=== PATIENT | female | born 1965 | race Caucasian/White ===

== ENCOUNTER 2019-10-07 06:29 | Emergency (ER) | payer OTHER ==
[~2019-10-07] VITALS: Ht 160 cm; Wt 98.4 kg
[2019-10-07] MEDS ORDERED: ATACAND32 MG (06:46)
[2019-10-07] MEDS ORDERED: BYSTOLIC10 MG (06:46)
[2019-10-07] MEDS ORDERED: AMLODIPINE-OLM1 EAC3 (06:47)
== END 2019-10-07 10:17 | disposition home or self-care (01) ==
LOC: ER 06:29
DX: U07.1 COVID-19 (principal); R53.81 Other malaise; R50.9 Fever, unspecified

== ENCOUNTER 2019-10-10 19:42 | Inpatient (IN) | payer OTHER ==
[~2019-10-10] VITALS: Ht 160 cm; Wt 97.5 kg
[~2019-10-10 19:42] MED LIST: AMLODIPINE-OLM1 EAC3; ATACAND32 MG; BYSTOLIC10 MG
[2019-10-10] MEDS ORDERED: HYDROCHLOROTHIA25 MG (19:58)
--- NOTE | 2019-10-10 19:59 | NUR ---
SE RECIBE PTE ALERTA Y ORIENTADA X3,REFIERE TENR DIARREAS ,DOLOR EN EL PECHO LEVE ,DOLOR EN EL BRAZO STEPHANIE LLAMO A GIRARD MEDICO DE CABECERA AILYN LA REFIERE A LA AUSTIN DE ER.
--- NOTE | 2019-10-10 21:29 | NUR ---
PTE ALERTA Y ORIENTADA X3, SE LE LAKESHIA MUESTRAS DE LAB. JAN ORDEN MEDICA BAJO MEDIDAS ASEPTICAS. SE CANALIZA AREA SNOW DE EDEMA Y DE ENROJECIMIENTO. SE LE ADMINISTRAN MEDICAMENTOS JAN ORDEN MEDICA Y SE EDUCA SOBRE TRATAMIENTO MEDICO. PTE MANEJADA POR GREGG.
--- NOTE | 2019-10-10 21:58 | NUR ---
SE LE ENTREGA ENVASE PARA COLECTAR MUESTRA DE FECALES. PACIENTE ES ORIENTADO Y PACIENTE REFIERE ENTENDER. PACIENTE PENDIENTE A ENTREGAR MUETRA DE ESCRETA.
--- NOTE | 2019-10-11 01:48 | NUR ---
SE REQUIZAN MEDICAMENTOS CON PHLEBOTOMY SERVICES REPRESENTATIVE DE TURNO
--- NOTE | 2019-10-11 08:20 | NUR ---
SE RECIBE PTE ALERTA Y ORIENTADO POR 3 EN MERLENE CON BARANDAS ELEVADA Y TIMBRE ACCESIBLE NO PRESENTA DOLOR AL MOMENTO SE OBSERVA VENOPUNCION PATETEN Y SNOW DE EDEMA, PTE EN ESEPRA DEL DR BRANDY MULLINS, SE CONECTA A OXYMETRIA DE PULOS Y SE NOTIFICA TERAPIA RESPIRATORIO PTE SE MANTIENE EN OBSERVACION Y BAJO TRATAMIENTO.
== END 2019-10-21 15:41 | disposition home or self-care (01) | DRG 177 ==
LOC: ER 19:42 → MEDJ 10-11 10:46
PROVIDERS: ADMIT Internal Medicine; ATTEND Internal Medicine
PROC: BB24ZZZ Computerized Tomography (CT Scan) of Bilateral Lungs (ICD-10-PCS; principal; 2019-10-11)
PROC: 4A033R1 Measurement of Arterial Saturation, Peripheral, Percutaneous Approach (ICD-10-PCS; 2019-10-11)
PROC: 8E0ZXY6 Isolation (ICD-10-PCS; 2019-10-11)
PROC: 3E0F7GC Introduction of Other Therapeutic Substance into Respiratory Tract, Via Natural or Artificial Opening (ICD-10-PCS; 2019-10-11)
PROC: 4A12X4Z Monitoring of Cardiac Electrical Activity, External Approach (ICD-10-PCS; 2019-10-12)
DX: U07.1 COVID-19 (principal); J12.89 Other viral pneumonia; R09.02 Hypoxemia; I10 Essential (primary) hypertension; R50.9 Fever, unspecified

== ENCOUNTER 2019-11-27 16:08 | Emergency (ER) | payer OTHER ==
[~2019-11-27] VITALS: Ht 160 cm; Wt 90.7 kg
[~2019-11-27 16:08] MED LIST changes: +HYDROCHLOROTHIA25 MG
== END 2019-11-27 19:24 | disposition home or self-care (01) ==
LOC: ER 16:08
DX: R06.02 Shortness of breath (principal); U07.1 COVID-19

== ENCOUNTER 2019-12-11 18:54 | Emergency (ER) | payer OTHER ==
[~2019-12-11] VITALS: Ht 160 cm; Wt 90.7 kg
== END 2019-12-11 22:40 | disposition home or self-care (01) ==
LOC: ER 18:54
DX: R07.89 Other chest pain (principal); F06.4 Anxiety disorder due to known physiological condition